=== PATIENT | male | born 1990 | race Caucasian/White ===

== ENCOUNTER 2017-02-08 18:11 | Emergency (ER) | payer SELFPAY ==
[2017-02-08] MEDS ORDERED: ZOFRAN IV ONE (20:43)
[2017-02-08] MEDS ORDERED: DILAUDID IV ONE (20:43)
[2017-02-08] MEDS ORDERED: AMIDATE IV ONE (20:43)
[2017-02-08] MEDS ORDERED: VERSED IV ONE ×2 (21:16→21:53)
[2017-02-08] MEDS ORDERED: DIPRIVAN 10 MG/ML IV ONE ×2 (21:19→21:36)
--- NOTE | 2017-02-08 21:41 | Emergency Department Report ---
ED Upper Extremity Inj HPI - General Chief Complaint: Shoulder Injury Stated Complaint: DISLOCATED SHOULDER Time Seen by Provider: 02/08/17 20:31 Source: patient, old records reviewed Mode of arrival: Ambulatory Limitations: No Limitations - History of Present Illness Initial Comments: 26-year-old male with a past medical history previous right shoulder dislocation presents to Hospital complaints of right shoulder dislocation. 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 Patient has had 4 previous dislocations treated with reduction in the ED. Patient has never seen orthopedic doctor due to fear of requiring surgery and being sedated. Pain is 10/10, constant, aching and throbbing, worse movement and palpation, no alleviating factors. patient is right hand dominant - Related Data Previous Rx's Medication Instructions Recorded Last Taken Type HYDROcodone/APAP 5-325 [[place] 1 each PO Q6HR PRN #10 tablet 02/08/17 Unknown Rx 5-325 mg TAB] Ibuprofen [Motrin] 600 mg PO Q8H PRN #30 tablet 02/08/17 Unknown Rx Allergies Allergy/AdvReac Type Severity Reaction Status Date / Time tramadol AdvReac Seizure Verified 02/08/17 21:44 ED Review of Systems ROS: Stated complaint: DISLOCATED SHOULDER Other details as noted in HPI Comment: All other systems reviewed and negative Other: Constitutional: No fevers chills Eyes: No eye pain visual changes ENT: No ear pain or throat pain Neck: Denies pain Respiratory: Denies cough wheezing shortness of breath Cardiovascular: Denies chest pain, palpitations, syncope GI: Denies abdominal pain, vomiting, diarrhea : Denies dysuria Musculoskeletal: As per HPI Skin: Denies rash, lesions, erythema Neurologic: Denies headache, numbness, weakness Psychiatric: Denies suicidal ideation, hallucinations ED Past Medical Hx - Past Medical History Previous Medical History?: Yes Additional medical history: palpitations, anxiety, previous shoulder dislocations - Surgical History Past Surgical History?: No - Social History Smoking Status: Never Smoker Substance Use Type: None - Medications Home Medications: Home Medications Medication Instructions Recorded Confirmed Last Taken Type HYDROcodone/APAP 5-325 [[place] 1 each PO Q6HR PRN #10 tablet 02/08/17 Unknown Rx 5-325 mg TAB] Ibuprofen [Motrin] 600 mg PO Q8H PRN #30 tablet 02/08/17 Unknown Rx ED Physical Exam - General Limitations: No Limitations - Other Other exam information: General: No limitations, patient is alert in no acute distress Head exam: Atraumatic, normocephalic Eyes exam: Normal appearance, pupils equal reactive to light, extraocular movements intact ENT: Moist mucous membrane, normal oropharynx Neck exam: Normal inspection, full range of motion, no meningismus nontender Respiratory exam: Clear to auscultation bilateral, no wheezes, rales, crackles Cardiovascular: Normal rate and rhythm, normal heart sounds Abdomen: Soft, nondistended, and nontender, with normal bowel sounds, no rebound, or guarding Extremity: Right arm adducted and internally rotated with defect at right shoulder area. Tenderness palpation per positive good hand police records clerk, 2+ radial pulse, and sensation intact Back: Normal Inspection, full range of motion, no tenderness Neurologic: Alert, oriented x3, cranial nerves intact, no motor or sensory deficit Psychiatric: normal affect, normal mood Skin: Warm, dry, intact ED Course Vital Signs 02/08/17 02/08/17 02/08/17 18:15 20:58 21:00 Temperature 98.1 F 98.6 F Temperature [ Intra-Procedure ] Temperature [ Post-Procedure] Temperature [ Pre-Procedure] Pulse Rate 79 79 Pulse Rate [ Intra-Procedure ] Pulse Rate [ Post-Procedure] Pulse Rate [Pre -Procedure] Respiratory 18 20 20 Rate Respiratory Rate [Intra- Procedure] Respiratory Rate [Post- Procedure] Respiratory Rate [Pre- Procedure] Blood Pressure 121/79 Blood Pressure [Intra- Procedure] Blood Pressure 127/76 [Left] Blood Pressure [Post-Procedure ] Blood Pressure [Pre-Procedure] O2 Sat by Pulse 100 100 Oximetry O2 Sat by Pulse Oximetry [ Intra-Procedure ] O2 Sat by Pulse Oximetry [Post -Procedure] O2 Sat by Pulse Oximetry [Pre- Procedure] 02/08/17 02/08/17 02/08/17 21:05 21:10 21:15 Temperature Temperature [ 98.6 F Intra-Procedure ] Temperature [ 98.6 F Post-Procedure] Temperature [ 98.6 F Pre-Procedure] Pulse Rate Pulse Rate [ 70 Intra-Procedure ] Pulse Rate [ 59 L Post-Procedure] Pulse Rate [Pre 60 -Procedure] Respiratory 20 Rate Respiratory 20 Rate [Intra- Procedure] Respiratory 20 Rate [Post- Procedure] Respiratory 20 Rate [Pre- Procedure] Blood Pressure Blood Pressure 121/84 [Intra- Procedure] Blood Pressure [Left] Blood Pressure 120/78 [Post-Procedure ] Blood Pressure 127/76 [Pre-Procedure] O2 Sat by Pulse Oximetry O2 Sat by Pulse 100 Oximetry [ Intra-Procedure ] O2 Sat by Pulse 100 Oximetry [Post -Procedure] O2 Sat by Pulse 100 Oximetry [Pre- Procedure] 02/08/17 02/08/17 21:30 21:49 Temperature Temperature [ Intra-Procedure ] Temperature [ Post-Procedure] Temperature [ Pre-Procedure] Pulse Rate Pulse Rate [ Intra-Procedure ] Pulse Rate [ Post-Procedure] Pulse Rate [Pre -Procedure] Respiratory 20 Rate Respiratory Rate [Intra- Procedure] Respiratory Rate [Post- Procedure] Respiratory Rate [Pre- Procedure] Blood Pressure Blood Pressure [Intra- Procedure] Blood Pressure [Left] Blood Pressure [Post-Procedure ] Blood Pressure [Pre-Procedure] O2 Sat by Pulse 100 Oximetry O2 Sat by Pulse Oximetry [ Intra-Procedure ] O2 Sat by Pulse Oximetry [Post -Procedure] O2 Sat by Pulse Oximetry [Pre- Procedure] - Moderate Sedation Indications: fracture/dislocation redu ASA Class: I Mallampati Airway Score: 1 Time of Last PO Intake: 17:30 Preparation: grain operations manager applied, pulse oximeter, capnometry used, supplemental O2 applied, suction/airway equipment at bedside, IV secured Midazolam: IV Midazolam Dose: 1 IV Propofol Dose (mgs): 175 IV Etomidate Dose (mgs): 15 Complications: none Interventions: oxygen applied Patient Tolerated Procedure: well Additional Comments: Initial sedation with etomidate unsuccessful, patient remained alert, tremulous , and nervous. Warm blanket applied and Versed given. Patient then required a total of 175 mg of propofol for adequate sedation for shoulder reduction. - Orthopedic Joint Reduction Joint #1 Consent Obtained: written consent Time Out Performed: Yes Side: right Joint Reduction Location: shoulder Analgesia: moderate sedation Shoulder Technique Used (if applicable): traction/counter-traction Technique Used: traction/counter-traction Post-Reduction Neuro Exam: intact Post-Reduction Vascular Exam: intact Post Reduction X-Ray Obtained: Yes Post Reduction X-Ray Results: reduced Splint Applied: Yes Patient Tolerated Procedure: well ED Medical Decision Making - Radiology Data Radiology results: image reviewed (initial right shoulder x-ray: Right shoulder reduction of fracture) interpreted by me: Right shoulder x-ray post reduction: Positive successful reduction without fracture - Medical Decision Making Patient tolerated with reduction in the ED. Alert and oriented 3. No signs of fracture. Immobilization provided. We encouraged follow-up with orthopedic doctor for definitive management given chronic dislocation - Differential Diagnosis fracture, dislocation, strain Critical Care Time: No Critical care attestation.: If time is entered above; I have spent that time in minutes in the direct care of this critically ill patient, excluding procedure time. ED Disposition Clinical Impression: Anterior dislocation of right shoulder, Recurrent dislocation, right shoulder Disposition: TO HOME OR SELFCARE Is pt being admited?: No Does the pt Need Aspirin: No Condition: Stable Instructions: Shoulder Dislocation (ED) Additional Instructions: Follow-up with either of the 3 orthopedic groups provided. Continue to wear shoulder immobilizer until cleared by orthopedics. Prescriptions: HYDROcodone/APAP 5-325 [[place] 5-325 mg TAB] 1 each PO Q6HR PRN #10 tablet PRN Reason: Pain Ibuprofen [Motrin] 600 mg PO Q8H PRN #30 tablet PRN Reason: Pain Referrals: [facility] [Provider Group] - 3-5 Days MARCELLUS CAMARGO MD [Staff Physician] - 3-5 Days DANIEL MOONEY MD [Staff Physician] - 3-5 Days Time of Disposition: 22:16
[2017-02-09 06:26] VITALS: BP 122/70
--- NOTE | 2017-02-09 08:48 | XRay Report ---
RIGHT SHOULDER, ONE VIEW History: Postreduction film. Findings: The dislocation at the glenohumeral joint has been reduced. No fracture is detected. Impression: Successful reduction of the right shoulder dislocation.
--- NOTE | 2017-02-09 08:48 | XRay Report ---
RIGHT SHOULDER: History: Pain, dislocation. An anterior, inferior dislocation of the right humeral joint is identified. No obvious fracture. IMPRESSION: Dislocation.
== END 2017-02-08 23:00 | disposition home or self-care (01) ==
LOC: ED 18:11
DX: S43.004A Unspecified dislocation of right shoulder joint, initial encounter (principal); M24.411 Recurrent dislocation, right shoulder; Z88.6 Allergy status to analgesic agent; X58.XXXA Exposure to other specified factors, initial encounter; Y93.64 Activity, baseball; Y99.9 Unspecified external cause status; Y92.219 Unspecified school as the place of occurrence of the external cause
CPT/HCPCS: 23650; 73020; 73030; 94760; 96374; 96375; 99285; J1170; J2250; J2405; J2704